=== PATIENT | male | born 1930 | race Caucasian/White ===

== ENCOUNTER 2017-09-29 20:15 | Emergency (ER) | payer OTHER ==
[~2017-09-29] VITALS: Ht 177.8 cm; Wt 81.7 kg
[~2017-09-29 20:15] MED LIST: ASPIRIN325 PO; CARDIZEM CD180 MG PO; CIPRO500 MG PO; DUONEB 2.5-0.5 M3 ML INH; FISHOIL; FOSAMAX 70 MG T70 M1; LOVASTAT20 PO; NORVASC 5 MG TAB5 MG PO; NYSTATIN 1100000 U/M; PREDNISONE 10 M10 MG PO; PREDNISONE 20 M20 MG PO; PRINIVIL5 MG PO; TYLENOL325 MG PO; VENTOLIN HFA INH8 GM INH; VITAMIN D1000 UNI1 PO; ZPAK PO
[2017-09-29 21:11] LABS: HEMATOCRIT 45.1 % (42.0-52.0); HEMOGLOBIN 14.5 gm/dL (14.0-18.0); MCH 25.6 pg (26.0-34.0); MCHC 32.1 g/dL (28.0-37.0); MCV 79.7 fL (80.0-100.0); MPV 9.7 fl. (7.2-11.1); NUCLEATED RBCS 0 /100WBC; PLATELET COUNT* 291 thou/uL (150-400); RBC 5.65 mil/uL (4.50-6.00); RDW-CV 15.7 % (10.5-14.5); WBC 14.6 thou/uL (4.0-11.0)
[2017-09-29 21:21] LABS: CALCIUM 8.8 mg/dL (8.5-10.1); CREATININE 1.9 mg/dL (0.6-1.3)
[2017-09-29 21:22] LABS: POTASSIUM 4.8 mmol/L (3.5-5.1)
[2017-09-29 21:23] LABS: ABSOLUTE LYMPHOCYTES 0.4 thou/uL (0.8-5.3); ABSOLUTE MONOCYTES 0.3 thou/uL (0.0-1.2); ABSOLUTE NEUTROPHILS 13.9 thou/uL (1.6-8.1); PLATELET ESTIMATE ADEQUATE
[2017-09-29 21:26] LABS: ALBUMIN 3.1 g/dL (3.4-5.0); TOTAL PROTEIN 6.4 g/dL (6.4-8.2)
[2017-09-30 00:47] VITALS: BP 115/68
--- NOTE | 2017-09-30 12:00 | EKG ---
[place] [address] ELECTROCARDIOGRAM REPORT Name: CORRINAFER Yovana [id number] Admission: 09/29/17 Attend Phys: Discharge: 09/30/17 Date of : 32 Report #: [id number] THIS REPORT FOR: //name// [facility] ED Test Date: 2017-09-29 Test Time: 20:52:01 Pat Name: SELWYN HOUSER Department: Room: Gender: M Therapist'S Assistant: ROSEMARY : 1930 Requested By: Vandana Min Order Number: [id number] MD: Jamey Aguilar Measurements Intervals [place] Rate: 128 P: 93 NH: 87 QRS: -85 QRSD: 158 T: 45 QT: 395 QTc: 577 Interpretive Statements Sinus tachycardia 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
== END 2017-09-30 00:47 | disposition home or self-care (01) ==
LOC: M.ERS 20:15
PROVIDERS: Emergency Medicine
DX: S43.084A Other dislocation of right shoulder joint, initial encounter (principal); J44.9 Chronic obstructive pulmonary disease, unspecified; W01.0XXA Fall on same level from slipping, tripping and stumbling without subsequent striking against object, initial encounter; Y93.89 Activity, other specified; Y92.89 Other specified places as the place of occurrence of the external cause; Y99.8 Other external cause status

== ENCOUNTER 2017-11-14 13:56 | Inpatient (IN) | payer OTHER ==
[~2017-11-14] VITALS: Ht 172.7 cm; Wt 77.1 kg
[2017-11-14 13:57] VITALS: BP 103/60
[2017-11-14] MEDS ORDERED: ALEVE220 MG PO (14:12)
[2017-11-14] MEDS ORDERED: LASIX 40 MG TAB40 M2 PO (14:12)
[2017-11-14] MEDS ORDERED: ALENDRONATE SOD70 MG PO (14:12)
[2017-11-14] MEDS ORDERED: FISH OIL 1,001000 M2 PO (14:12)
[2017-11-14] MEDS ORDERED: ROXICODONE5 M2 PO (14:13)
[2017-11-14 14:37] LABS: ABSOLUTE LYMPHOCYTES 1.6 thou/uL (0.8-5.3); ABSOLUTE MONOCYTES 1.3 thou/uL (0.0-1.2); ABSOLUTE NEUTROPHILS 10.5 thou/uL (1.6-8.1); BASOPHILS 0.4 %; HEMATOCRIT 49.4 % (42.0-52.0); HEMOGLOBIN 15.9 gm/dL (14.0-18.0); LYMPHOCYTES 11.9 %; MCH 25.3 pg (26.0-34.0); MCHC 32.1 g/dL (28.0-37.0); MCV 78.8 fL (80.0-100.0); MONOCYTES 9.4 %; MPV 8.8 fl. (7.2-11.1); NUCLEATED RBCS 0 /100WBC; PLATELET COUNT* 342 thou/uL (150-400); POLYS 78.3 %; RBC 6.27 mil/uL (4.50-6.00); RDW-CV 18.7 % (10.5-14.5); WBC 13.4 thou/uL (4.0-11.0)
[2017-11-14 14:42] LABS: CALCIUM 9.2 mg/dL (8.5-10.1); CREATININE 1.5 mg/dL (0.6-1.3); POTASSIUM 4.6 mmol/L (3.5-5.1)
[2017-11-14 14:47] LABS: TOTAL PROTEIN 6.6 g/dL (6.4-8.2)
[2017-11-14 14:52] LABS: URINE BILIRUBIN NEGATIVE (Negative); URINE BLOOD NEGATIVE (Negative); URINE CLARITY CLEAR; URINE COLOR YELLOW; URINE GLUCOSE-RANDOM NEGATIVE (Negative); URINE KETONES NEGATIVE (Negative); URINE LEUKOCYTES-REFLEX NEGATIVE (Negative); URINE NITRITE-REFLEX NEGATIVE (Negative); URINE PROTEIN TRACE (Negative); URINE SPECIFIC GRAVITY 1.025 (1.005-1.030); URINE UROBILINOGEN 0.2 E.U./dl (0.2-1.0)
[2017-11-14 15:03] LABS: BE -0.8 mmol/L (-2 to +3); HCO3 23.9 mmol/L (22.0-26.0); pH 7.395 (7.340-7.450)
[2017-11-14 15:04] LABS: PO2 59.5 mmHg (75.0-100.0)
[2017-11-14 15:19] LABS: TROPONIN-I LEVEL 0.07 ng/mL (<0.06)
[2017-11-14 16:26] VITALS: BP 113/71
--- NOTE | 2017-11-14 16:43 | EKG ---
[place] [address] ELECTROCARDIOGRAM REPORT Name: FER HOUSER Room: [place] [address] ADM IN [facility].#: [id number] Admission: 11/14/17 Attend Phys: Leonor Torres Discharge: Date of : 32 Report #: [id number] THIS REPORT FOR: //name// [facility] ED Test Date: 2017-11-14 Test Time: 14:18:33 Pat Name: FER HOUSER Department: Room: [facility] Gender: M Briquetting Machine Operator: Christos MULLINS : 1930 Requested By: Monisha Hendricks Order Number: [id number] MD: Godfrey Rivas Measurements Intervals [place] Rate: 138 P: 0 CA: QRS: 132 QRSD: 155 T: 9 QT: 373 QTc: 566 Interpretive Statements Atrial tachycardia, possible atrial flutter with 2:1 conduction RBBB and LPFB Compared to ECG 08/25/2015 15:07:16 Left posterior fascicular block now present Left-axis deviation no longer present T-wave abnormality no longer present Possible ischemia no longer present Electronically Signed On 11-14-2017 16:43:25 CDT by Godfrey Rivas [email or web address] <ELECTRONICALLY SIGNED> By: Godfrey Rivas MD, FACC 11/14/17 1643 1418 1418 Godfrey Rivas MD, FAC /EPI
[2017-11-14 20:00] VITALS: BP 99/66
[2017-11-15] VITALS: BP 121/66
[2017-11-15] MEDS ORDERED: ASPIR 8181 MG PO (01:19)
[2017-11-15] MEDS ORDERED: POTASSIUM20 PO (01:20)
--- NOTE | 2017-11-15 02:04 | NUR ---
PT ALERT ORIENTED. FRANCISCA LEGS WITH CELLULITIS PICTURED AND PLACED ON CHART. VASALINE GAUZE AND KERLEX WRAP. PT STATES PAIN. HYDROCODONE GIVEN. PT STILL CO PAIN. DR NOTIFIED. OXYCODONE 5 MG BID ORDERED. PT FELL ASLEEP AFTER OXYCODONE. TELEMETRY SHOWS ST 120'S. BP STABLE DR AMANDA KELLEY NOTIFIED. CARDIOLOY CONSULTED IN AM. RICKY WITH PINK TINGED. WILL CONTINUE TO MONITOR.
[2017-11-15 04:00] VITALS: BP 136/73
[2017-11-15 08:00] VITALS: BP 127/62
[2017-11-15 11:36] VITALS: BP 113/79
[2017-11-15 12:12] LABS: HEMATOCRIT 48.2 % (42.0-52.0); HEMOGLOBIN 15.3 gm/dL (14.0-18.0); MCH 24.8 pg (26.0-34.0); MCHC 31.8 g/dL (28.0-37.0); MCV 78.1 fL (80.0-100.0); MPV 8.7 fl. (7.2-11.1); NUCLEATED RBCS 0 /100WBC; PLATELET COUNT* 358 thou/uL (150-400); RBC 6.17 mil/uL (4.50-6.00)
[2017-11-15 12:20] LABS: CALCIUM 8.7 mg/dL (8.5-10.1); CREATININE 1.5 mg/dL (0.6-1.3); POTASSIUM 5.5 mmol/L (3.5-5.1)
[2017-11-15 12:40] LABS: ABSOLUTE LYMPHOCYTES 0.6 thou/uL (0.8-5.3); ABSOLUTE MONOCYTES 0.6 thou/uL (0.0-1.2); ABSOLUTE NEUTROPHILS 13.8 thou/uL (1.6-8.1); ANISOCYTOSIS 1+; PLATELET ESTIMATE ADEQUATE; POIKILOCYTOSIS 1+
--- NOTE | 2017-11-15 13:08 | NUR ---
WOUND CARE NOTE: CONSULT RECEIVED FOR CELLULITIS. PATIENT PRESENTS WITH RED, EDEMATOUS LEGS BILATERALLY. THERE ARE ALSO MULTIPLE AREAS TO BILATERAL LOWER LEGS THAT HAVE RUPTURED BLISTERED AREAS. THESE ARE DRAINING SEROUS DRAINAGE. LEGS WERE CLEANSED WITH SOAP AND WATER BY HIS RN. ABLE TO DOPPLE ALL PEDAL PULSES. 2+ PITTING EDEMA NOTED. PATIENT STATES HE HAS BEEN DEALING WITH THE SWELLING IN HIS LEGS SINCE JULY, THEY THEN BLISTERED AND LOOKED LIKE THIS. PATIENT WAS PREMEDICATED WITH PAIN MEDICATION PRIOR TO ASSESSMENT HIS LEGS ARE EXTREMELY TENDER. WOUND BEDS ARE MOIST, RED AND DRAINING SEROUS FLUID. PATIENT ADMITS TO SMOKING, BUT HE STATES HE IS DONE WITH THAT. 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 FAMILY MEMBER STATES THAT HIS PCP HAD HIM IN [place]. PATIENT STATES THAT HE IS TYPICALLY UP MOVING AROUND. APPLIED XEROFORM GAUZE AND VASELINE GAUZE TO OPENINGS ON BILATERAL LEGS THEN COVERED WITH ABD. SECURED WITH KERLIX AND MACEY. PATIENT TOLERATED DRESSING CHANGE WELL. EDUCATED ON COMPRESSION, COMMUNICATED UNDERSTANDING. RECOMMEND KEEP LEGS ELEVATED DAILY DRESSING CHANGES CONSULT VASCULAR ENCOURAGE GOOD NUTRITION AND HYDRATION
--- NOTE | 2017-11-15 13:21 | NUR ---
assumed pt care at 0730, full assesment done as charted. pt a/o x4, c/o pain in bilat legs. pts legs very red, blisters noted that have popped and others that have not. pts ST on the heart monitor. spoke to cardiology and dr avila about plan of care. pts vss, on 2l o2 sats 95%. legs wrapped by wound care this am. family at bedside, educated on plan. fall precatuions in place. call light in reach. will continue withplan of care.
--- NOTE | 2017-11-15 14:07 | NUR ---
MET WITH PT, , DTR/LUIS A, SON SELWYN AND HIS GERALD. LUIS A AND GERALD ARE PT'S DPOA, COPY ON CHART. PT LIVES WITH /ANAHY. THEY HAVE A SON AND DIL SANYA AND WILL THAT LIVE CLOSEBY THAT CHECK ON THEM. PT CAN DRIVE BUT HAS BEEN HAVING INCREASED HEALTH ISSUES LATELY. IS ABLE TO DO LITTLE COOKING. PT HAS NEBULIZER. HAD HH WITH [facility] BUT PER GERALD, IT ENDED RECENTLY. A NURSE FRIEND/GERARD COMES OVER AND DRESSES PT'S LEGS. THEY WOULD LIKE TO HAVE HH AGAIN IF POSSIBLE. PT HAS BEEN TO SNF IN PAST AT [facility]. PT FOLLOWS WITH DR MINA AT THE [facility] IN [place]. USES CANE TO GET AROUND. FAMILY BRINGS IN FOOD AND HELPS WITH ELECTRICAL CAD TECHNICIAN. DTR/LUIS A PLANS TO BE WITH THEM IN DECEMBER AFTER SCHOOL IS OUT AND SHE RETIRES. AT THIS TIME, SHE LIVES IN [facility] AND GERALD LIVES IN [place]. THEY BOTH PLAN TO BE HERE THRU THE W/E FOR NOW. UNSURE OF PT'S NEEDS AT THIS TIME, DID DISCUSS HOME WITH HH VS SNF. WILL FOLLOW
[2017-11-15 16:23] VITALS: BP 105/68
--- NOTE | 2017-11-15 16:41 | NUR ---
OT RECEIVED ORDER TO EVAL AND TREAT DUE TO CELLULITIS AND LYMPHEDEMA IN BLES. NSG STATED THAT PT WAS JUST SEEN BY WOUND CARE AND MEDICATION WAS PUT ON AND LEGS WRAPPED. FAMILY STATES THAT LEGS LOOK REALLY GOOD AND ARE NOT SWOLLEN AT THIS TIME. OTR EXPLAINED LYMPHEDEMA AND THE BENEFITS OF KEEPING THE SWELLING UNDER CONTROL SO THAT HE DOESNT HAVE MORE INFECTIONS AND WOUNDS ON HIS LES. OTR SUGGESTED THAT ONCE PT IS OUT OF HOSPITAL TO SEE A LYMPHEDEMA THERAPIST IN ORDER TO HELP WITH THE SWELLING. PT AND FAMILY AGREED AND WOULD FOLLOW THROUGH AFTER LEAVING THE HOSPITAL. OTR WILL CONTINUE TO CHECK ON PT.
[2017-11-15 21:27] VITALS: BP 96/60
[2017-11-16] VITALS: BP 100/68
[2017-11-16 04:00] VITALS: BP 95/45
--- NOTE | 2017-11-16 04:09 | NUR ---
ASSUMED PT CARE AT 1930, PT IS A&OX4, PT IS TRACING ST ON THE MONITOR, PT'S HEART RATE BECAME IRREGULAR, EKG WAS PREFORMED, EKG READS AFLUTTER. PT IS ON 4L NC SATTING MID TO HIGH 90'S. PT HAS A GARCÍA TO DD, DRAINIGN YELLOW URINE. PT HAS CELLULITIS TO BLE. LEGS WERE WRAPPED BY WOUND NURSE ON DAY SHIFT. PT C/O PAIN THOURGHOUT THE SHIFT, PRN PAIN MEDICATION GIVEN PER OCT, BED IN LOW POSITION, CALL LIGHT IN REACH, BED ALARM ON, YELLOW ARM BAND AND SOCKS IN PLACE. HOURLY ROUNDING COMPLETED FOR PT SAFETY.
[2017-11-16 04:55] LABS: HEMATOCRIT 45.4 % (42.0-52.0); HEMOGLOBIN 14.6 gm/dL (14.0-18.0); MCHC 32.1 g/dL (28.0-37.0); MPV 9.2 fl. (7.2-11.1); RBC 5.81 mil/uL (4.50-6.00); RDW-CV 18.5 % (10.5-14.5)
[2017-11-16 05:03] LABS: CALCIUM 8.5 mg/dL (8.5-10.1); CREATININE 1.6 mg/dL (0.6-1.3); POTASSIUM 4.8 mmol/L (3.5-5.1)
[2017-11-16 07:30] VITALS: BP 92/53
[2017-11-16 09:02] VITALS: BP 112/71
--- NOTE | 2017-11-16 09:30 | EKG ---
[place] [address] ELECTROCARDIOGRAM REPORT Name: FER HOUSER Room: [address] ADM IN M.R.#: [id number] Admission: 11/14/17 Attend Phys: Leonor Torres Discharge: Date of : 31 Report #: [id number] THIS REPORT FOR: //name// [facility] Test Date: 2017-11-16 Test Time: 02:44:35 Pat Name: FER HOUSER Department: Room: [address] Gender: M Prototype Technician: SOL : 1930 Requested By: Cristhian Hyde Order Number: [id number] Nivia MD: Cristhian Hyde Measurements Intervals [employer] Rate: 112 P: MD: QRS: -82 QRSD: 155 T: 135 QT: 353 QTc: 482 Interpretive Statements Atrial flutter RBBB and LAFB Abnormal T, consider ischemia, lateral leads Baseline wander in lead(s) V6 Compared to ECG 11/14/2017 14:18:33 Left anterior fascicular block now present rate slowed Left posterior fascicular block no longer present Electronically Signed On 11-16-2017 9:29:58 CDT by Cristhian Hyde [email or web address] <ELECTRONICALLY SIGNED> By: Cristhian Hyde MD, FACC 11/16/17 0929 0244 0244 Cristhian Hyde MD, FACC /EPI
--- NOTE | 2017-11-16 09:35 | EKG ---
[place] [address] ELECTROCARDIOGRAM REPORT Name: FER HOUSER Room: [address] ADM IN M.R.#: [id number] Admission: 11/14/17 Attend Phys: Leonor Torres Discharge: Date of : 32 Report #: [id number] THIS REPORT FOR: //name// [facility] Test Date: 2017-11-16 Test Time: 08:26:43 Pat Name: FER HOUSER Department: Room: [address] Gender: M Security Screener: [facility] : 1930 Requested By: Godfrey Rivas Order Number: [id number] Nivia MD: Cristhian Hyde Measurements Intervals [place] Rate: 114 P: VT: QRS: -81 QRSD: 158 T: 118 QT: 363 QTc: 501 Interpretive Statements Atrial flutter RBBB and LAFB Abnrm T, probable ischemia, anterolateral lds Electronically Signed On 11-16-2017 9:35:34 CDT by Cristhian Hyde [email or web address] <ELECTRONICALLY SIGNED> By: Cristhian Hyde MD, [facility] 11/16/17 0935 0826 5 Cristhian Hyde MD, FACC /EPI
--- NOTE | 2017-11-16 09:49 | NUR ---
ASSUMED PT CARE AT 0730, FULL ASSESMENT DONE CHARTED. PT A/O X4, C/O SOME PAIN IN BILAT LEGS. DISCUSSED PAIN MED TIMES WITH PT. HE VERBALIZED UNDERSTANDING. BP LOW THIS AM, MONITORING IT CLOSELY. PT C/O DOUBLE VISION AFTER BREAKFAST. DR BARRON NOTIFIED AND SPOKE WITH PT. PT AFLUTTER ON THE MONITOR. HE USES CALL LIGHT APPROPRIALTY. FALL PRECAUTIONS IN PLACE. WILL CONTINUE WITH PLAN OF CARE.
[2017-11-16 11:53] VITALS: BP 108/73
--- NOTE | 2017-11-16 12:58 | CON ---
[address] [place] [address] [address] CONSULTATION Name: CORRINAFER Yovana Room: [address] IN M.R.#: [id number] Admission: 11/14/17 Attend Phys: Leonor Torres Discharge: Date of : 31 Report #: [id number] THIS REPORT FOR: //name// CC: Eldon Morales DATE OF SERVICE: 11/15/2017 INFECTIOUS DISEASE CONSULTATION ATTENDING PHYSICIAN: Dr. Emanuel Morales. REASON FOR EVALUATION: Lower extremity skin and soft tissue infection, bilateral, probably multifactorial inflammatory eruption including cellulitis, may well have some pneumonitis as well. HISTORY OF PRESENT ILLNESS: Chart reviewed and the patient examined. This is an 87-year-old with history of previous stroke with some underlying COPD as well who has been having increasing pain associated with the bilateral lower extremities. They noted back in July 2017 and developed some swelling as well as erythema. This progressed to the point where it had superficial bullous lesions, spontaneously drained primarily of serous fluid. He describes primarily pain associated with the site. There is no evidence he has had significant fevers. Denies pulmonary or gastrointestinal related complaints. Cultures have been collected. The Gram stain of the leg site had many gram-negative rods with rare gram-positive cocci on Gram stain with growth of many gram-negative rods, blood cultures. Empirically started on ceftriaxone as well as vancomycin. ALLERGIES: None known. MEDICATIONS: Include levalbuterol, Lasix, diltiazem CD, vancomycin, methylprednisolone, atorvastatin, ceftriaxone. PAST MEDICAL HISTORY: History of elevated cholesterol, osteoporosis, prostatectomy, history of stroke, history of appendectomy, COPD, cardiomyopathy, congestive heart failure, hypertension. SOCIAL HISTORY: History of smoking cigarettes, no ethanol. FAMILY HISTORY: Noncontributory. REVIEW OF SYSTEMS: As above. PHYSICAL EXAMINATION: GENERAL: He is alert and has some degree of dysphasia, [place] [address] CONSULTATION Name: FER HOUSER Room: [address]#: [id number] Admission: 11/14/17 Attend Phys: Leonor Torres Discharge: Date of : 31 Report #: [id number] degree of dementia as well, and chronically ill appearing and undernourished. VITAL SIGNS: Temperature 97.7, pulse 124, respirations 22, blood pressure 113/79. SKIN: Warm, dry, no rashes. HEENT: Unremarkable. NECK: Supple. LUNGS: Diminished breath sounds. Few scattered crackles. HEART: Regular. I do not appreciate murmur. ABDOMEN: Soft, nontender. EXTREMITIES: Bilateral lower extremities, he has compression dressings. These were left undisturbed. GENITOURINARY AND RECTAL: Deferred. LABORATORY DATA: CBC: White count of 15.0, H and H of 15.3 and 48.2, platelets of 358. Does have lymphocytopenia. Electrolytes: Sodium 138, potassium 5.5, chloride 103, bicarbonate is 29, BUN and creatinine 44 and 1.5. The cultures described above at the site, with gram-negative rods. Blood cultures sterile thus far. Lactic acid 1.4. Chest x-ray, small right pleural effusion. ASSESSMENT: Bilateral lower extremities inflammatory eruption, likely multifactorial. We will continue empiric therapy. We will adjust antibiotics to cover some broad-spectrum gram negatives at this point. We will await those results to finalize recommendations and supportive care. He is certainly at risk for infectious complications. I told I will be around when the next dressing change happens. <ELECTRONICALLY SIGNED> By: Jeremiah Allison MD 11/16/17 1258 1606 1931Joseadonis Allison MD /nt
--- NOTE | 2017-11-16 16:25 | 2DMMODE ---
[place] [address] 2 D/M-MODE ECHOCARDIOGRAM Name: FER HOUSER Room: 229-P ADM IN [facility]#: [id number] Admission: 11/14/17 Attend Phys: Emanuel Morales Discharge: Date of : 32 Date of Service: 11/16/17 1625 Report #: [id number] THIS REPORT FOR: //name// APPROVED REPORT Study performed: 11/16/2017 10:04:30 EXAM: Comprehensive 2D, Doppler, and color-flow Echocardiogram Patient Location: In-Patient Room #: 229 Status: routine BSA: 1.93 HR: 135 bpm BP: 112/71 mmHg Rhythm: NSR Other Information Study Quality: Good Indications Dyspnea Dariusz cellulitis, hypoxemia 2D Dimensions IVSd: 17.34 (7-11mm) LVOT Diam: 18.47 (18-24mm) LVDd: 42.16 mm PWd: 13.65 (7-11mm) Ascending Ao: 44.26 (22-36mm) LVDs: 31.13 (25-40mm) Aortic Root: 37.48 mm Volumes Left Atrial Volume (Systole) LA ESV Index: 61.80 mL/m2 Aortic Valve AoV Peak Kiran.: 4.28 m/s AO Peak Gr.: 73.34 mmHg LVOT Max P.08 mmHg AO Mean Gr.: 44.76 mmHg LVOT Mean P.38 mmHg LVOT Max V: 0.88 m/s AO V2 VTI: 72.93 cm LVOT Mean V: 0.53 m/s DOMINGA (VTI): 0.44 cm2 LVOT V1 VTI: 12.04 cm Mitral Valve E/A Ratio: 2.66 MV Decel. Time: 82.62 [place] [address] 2 D/M-MODE ECHOCARDIOGRAM Name: FER HOUSER Room: [address] IN .R.#: [id number] Admission: 11/14/17 Attend Phys: Emanuel Morales Discharge: Date of : 32 Date of Service: 11/16/17 1625 Report #: [id number] MV E Max Kiran.: 1.56 m/s MV PHT: 23.96 ms MVA (PHT): 9.18 cm2 TDI E/Medial E': 31.20 Medial E' Kiran.: 0.05 m/s Pulmonary Valve PV Peak Kiran.: 0.64 m/s PV Peak Gr.: 1.64 mmHg Tricuspid Valve TR Peak Gr.: 34.00 mmHg RVSP: 39.00 mmHg Left Ventricle The left ventricle is normal size. There is global hypokinesis of the left ventricle. Moderate concentric left ventricular hypertrophy. Left ventricular systolic function is normal. The left ventricular ejection fraction is within the normal range. LVEF is 35-40%. Grade IV - fixed restrictive diastolic dysfunction. Right Ventricle Right ventricle is dilated. The right ventricular systolic function is normal. Atria Left atrium is severely dilated. Right atrium is severely dilated. Aortic Valve Severe aortic valve sclerosis. Moderate aortic regurgitation. Severe aortic stenosis. Mitral Valve Moderate mitral annular calcification. Moderate mitral regurgitation. No evidence of mitral valve stenosis. Tricuspid Valve The tricuspid valve is normal in structure. Moderate tricuspid regurgitation. The RVSP is 35-40 mmHg. Pulmonic Valve The pulmonary valve is normal in structure. There is no pulmonic valvular reg[place]itation[place] [address] 2 D/M-MODE ECHOCARDIOGRAM Name: FER HOUSER Room: [address] IN ..#: [id number] Admission: 11/14/17 Attend Phys: Emanuel Morales Discharge: Date of : 32 Date of Service: 11/16/17 1625 Report #: [id number] Aortic root is mildly dilated. IVC is normal in size and collapses with >50% inspiration Pericardium There is no pericardial effusion. <Conclusion> Moderate concentric left ventricular hypertrophy. LVEF is 35-40%. Left atrium is severely dilated. Severe aortic stenosis. Moderate aortic regurgitation. Moderate mitral regurgitation. <ELECTRONICALLY SIGNED> By: Cristhian Hyde MD, [facility] 11/16/17 1625 162 24 Cristhian Hyde MD, [facility] /INF
--- NOTE | 2017-11-16 19:02 | NUR ---
PT CONTINUES TO C/O PAIN IN BILAT LEGS. PT GIVEN EXTRA DOSE OF FENTENEL WITH DRESSING CHANGE, ALSO GIVEN OXY IR, PT HAD SOME RELIEF, BUT ASKES FOR PAIN MEDS HOURLY. PT EDUCATED THAT HIS BP HAS BEEN LOW AND GIVEN THE TIME THAT HE IS DUE FOR MORE PAIN MEDS. PT VERBALIZED UNDERSTANDING. PT DRESSINGS CHANGED A SECOND TIME THIS EVENING AFTER VASCULAR ASSESED HIM. PT UP TO CHAIR FOR DINNER. GARCÍA WAS REMOVED. PT HAS NOT VOIDED YET POST REMOVAL. WILL MONITOR THIS.
[2017-11-16 20:30] VITALS: BP 117/72
[2017-11-17] VITALS: BP 92/54
--- NOTE | 2017-11-17 00:30 | NUR ---
RECIEVED REPORT AT 1930. ASSESSMENT COMPLETED CHARTED. PT C/O PAIN IN BLE, GAVE PAIN MEDS PER IV WITH POSITIVE RESULTS. PT IS SLIGHTLY INCONTINENT OF URINE AFTER TAKING OUT GARCÍA. PT RESTING IN BED AT THIS TIME. IV IN RIGHT AC, ABLE TO MAKE NEEDS KNOWN, CALL LIGHT WITHIN REACH. FALL RISK R/T CONDITION OF BOTH LEGS. WILL CONTINUE WITH PLAN OF CARE.
[2017-11-17 04:00] VITALS: BP 97/48
[2017-11-17 05:47] LABS: HEMATOCRIT 45.7 % (42.0-52.0); HEMOGLOBIN 14.7 gm/dL (14.0-18.0); MCH 24.9 pg (26.0-34.0); MCHC 32.1 g/dL (28.0-37.0); MCV 77.7 fL (80.0-100.0); MPV 9.2 fl. (7.2-11.1); RBC 5.89 mil/uL (4.50-6.00); RDW-CV 18.4 % (10.5-14.5)
[2017-11-17 06:01] LABS: CALCIUM 8.8 mg/dL (8.5-10.1); CREATININE 1.8 mg/dL (0.6-1.3); MAGNESIUM 2.8 mg/dL (1.8-2.4); POTASSIUM 5.4 mmol/L (3.5-5.1)
[2017-11-17 08:00] VITALS: BP 116/71
--- NOTE | 2017-11-17 11:20 | NUR ---
CADEN WAS INFORMED BY NURSING THAT PATIENT REQUEST HOSPICE INFORMATONAL VISIT. CM SPOKE TO PATIENT, DTR, DPOA, AND SPOUSE TO DISCUSS HOSPICE AND TIME TO SETUP VISIT. CADEN CONTACTED [facility] AND SPOKE TO RANJIT TO INFORM OF THE NEED TO SETUP HOSPICE INFOMATONAL VISIT. CADEN INFORMED RANJIT THAT THE PATIENTS FAMILY IS REQUESTING A VISIT TODAY (11/17/16) AT 1600. RANJIT INFORMS THAT SHE WILL CONTACT THE PATIENTS DPOA GERALD TO SETUP A TIME TO VISIT. CM WILL REMAIN AVAILABLE TO ASSIST AND FOLLOW NEEDED.
[2017-11-17 12:00] VITALS: BP 116/68
--- NOTE | 2017-11-17 13:29 | NUR ---
HOSPICE VISITED WITH PT AND FAMILY. PT AND FAMILY AGREE THAT THEY DO NOT WANT AGGRESSIVE TREATMENT. FAMILY WOULD LIKE PT TO GO HOME WITH HOSPITAL BUT THAT IS NOT AN IDEAL PLAN PT AND LIVE ALONE. PT AND FAMILY DICUSSED POSSIBILITY OF GOING TO SNU FOR REHAB THEN GOING HOME ON HOSPICE. ENCOURAGED THEM TO DISCUSS WITH CASE MANAGEMENT ON MONDAY
[2017-11-17 16:31] VITALS: BP 98/49
--- NOTE | 2017-11-17 17:33 | NUR ---
PT RESTING IN BED THROUGHOUT SHIFT. FAMILY AT BS AND UPDATED ON CARE. FAMILY REQUESTED HOSPICE VISIT TODAY. PT SOA WITH CONVERSATION,POOR APPETITE. UP TO BSC WITH MAXIMUM ASSIST. PT DUSKY BUT MAINTAINS SATS IN UPPER 90S. PT REPORTS PAIN IN BLE-MEDS GIVEN ORDERED
[2017-11-17 20:00] VITALS: BP 107/57
--- NOTE | 2017-11-17 23:48 | H ---
[address] [address] HISTORY AND PHYSICAL Name: CORRINAFER Yovana Room: [address] IN M.R.#: [id number] Admission: 11/14/17 Attend Phys: Leonor Torres Discharge: Date of : 31 Report #: [id number] THIS REPORT FOR: //name// CC: Eldon Morales DATE OF SERVICE: 11/14/2017 CHIEF COMPLAINT: "Short of breath and I fell." HISTORY OF PRESENT ILLNESS: The patient is an 87-year-old gentleman, who has history of severe aortic stenosis and COPD, who presented to us here after a fall. He has been complaining of some shortness of breath for a long time. He continues to smoke, however, and said that he is smoking 3 cigarettes per day. He has been following up with his PCP outpatient apparently. Per , the patient was diagnosed to have some heart issues before I believe, the aortic stenosis and he did not want it done per . The patient also has some lower extremity cellulitis, this has been going on for a while and has blistered off starting last night. Denies any fever or chills. The patient was also noted to have 88% saturation in the [facility], so he was sent here. The patient has been having some pain in his legs, but he said that his lower extremities erythema and swelling has been going on for months. The patient fell apparently today and hit his right shoulder, so that is why they decided to come in. 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 PAST SURGICAL HISTORY: Cholecystectomy, hernia repair, right wrist surgery, appendectomy, cataract surgery in 2016. FAMILY HISTORY: The family does not really know the medical problems and the patient also is not sure. SOCIAL HISTORY: The patient lives with the . He continues to smoke maybe 3 cigarettes per day, but smoked for a long time in the past. Denies any alcohol use, denies illicit drug use. MEDICATIONS: Includes Albuterol 2 puffs inhaled every 4 hours for shortness of breath, diltiazem 360 daily, DuoNeb every 4 hours as needed, alendronate 1 tab p.o. q. weekly, lovastatin 10 mg daily, fish oil 1000 b.i.d., naproxen 220 q. 8 hours, furosemide 40 daily, oxycodone 5 mg q. 12 hours p.r.n. REVIEW OF SYSTEMS: The patient denies any fever or chills. He does have some chronic cough, some chronic shortness of breath. Denies any chest pain, [place] [address] HISTORY AND PHYSICAL Name: FER HOUSER Room: [address] IN [facility]#: [id number] Admission: 11/14/17 Attend Phys: Leonor Torres Discharge: Date of : 31 Report #: [id number] been really weak and also lower extremity edema. Denies any nausea, vomiting, abdominal pain, diarrhea, constipation. A 12-point review of systems unremarkable as mentioned above. PHYSICAL EXAMINATION: VITAL SIGNS: Temperature 36.7, heart rate 136, respiratory 19, blood pressure 101/64, 95% on 3 liters nasal cannula. GENERAL: The patient is alert. He is oriented x 3. He is in mild respiratory distress and good conversational dyspnea. HEENT: Normocephalic, atraumatic. Nares patent. Clear oropharynx. NECK: Supple. No neck lymphadenopathy. CARDIOVASCULAR: Normal rate, regular rhythm. Does have some murmur. RESPIRATORY: Very diminished. He is wheezing on exam. GASTROINTESTINAL: Abdomen is soft, nontender, good bowel sounds. No organomegaly. GENITOURINARY: Deferred. MUSCULOSKELETAL: Good strength. He does have bilateral lower extremity edema with erythema and blister formation in the lower extremity all over. He has tenderness all over. LABORATORY DATA: Reviewed and CBC showed a white count of 13.4, hemoglobin 16.9, hematocrit 49.4, platelet count is 342. Chemistry showed a sodium 142, potassium is 4.6, chloride is 102, carbon dioxide is 32, BUN 34, creatinine is 1.5, glucose 91. Lactic acid 1.4. Calcium is 9.2, bilirubin is 1, AST 40, ALT 42. Troponin is 0.07 and another set is 0.07. BNP is elevated, total protein 6.2, albumin 3. Urine is trace protein. IMAGING STUDIES: A chest x-ray done shows moderate pleural effusion. Right shoulder x-ray done showed no acute osseous abnormality. remains medical concern, MRI or CT were recommended. IMPRESSION: The patient is an 87-year-old gentleman, who is admitted for acute chronic obstructive pulmonary disease exacerbation, acute on chronic hypoxic respiratory failure, severe aortic stenosis on last echo, on chronic O2. He does have history of hypertension, hyperlipidemia. He does have bilateral lower extremity cellulitis with lymphedema, chronic tobaccoism, mild troponin elevation, and known congestive heart failure. PLAN: The patient will be admitted. I expect this patient is going to be here more than 2 midnights. We will go ahead and put him on antibiotics, nebulizer treatment and steroids. We will put him on Rocephin and Zithromax for that. Given the troponin elevation, ED physician already consulted, Cardiology, as the patient also has severe aortic stenosis. We will go ahead also do ultrasound of the legs and treat the patient. Due to lymphedema therapy, we will add vancomycin to cover any staph infection in his lower extremity. ID has been consulted. We will go ahead and I will ask PT [place] [address] HISTORY AND PHYSICAL Name: FER HOUSER Room: [address] IN [facility]#: [id number] Admission: 11/14/17 Attend Phys: Leonor Torres Discharge: Date of : 31 Report #: [id number] Discussed with the patient and the family regarding the patient's code status. The patient wants to be do not resuscitate and the is agreeable to that. <ELECTRONICALLY SIGNED> By: Thania Pedraza MD 11/17/17 2348 1725 [id number] Pedraza MD /nt
[2017-11-18 00:40] VITALS: BP 107/63
[2017-11-18 04:00] VITALS: BP 115/59
--- NOTE | 2017-11-18 04:03 | NUR ---
PT ALERT ORIENTED. UP TO BSC WITH 2-3 PERSON ASSIST. TELEMETRY SHOWS A-FIB BBB ALSO SR BBB. PT PULLED OFF O2 AND DESATURATED TO 80% ONE MIN LATER PT HAD 16 BEAT OF VTACH. O2 AT 4 LITERS NC. WILL CONTINUE TO MONITOR.
--- NOTE | 2017-11-18 04:05 | NUR ---
DR HAMLIN NOTIFIED OF 16 BEAT VTACH AT 0135. NO NEW ORDERS.
[2017-11-18 05:51] LABS: MCH 25.2 pg (26.0-34.0); MCHC 32.6 g/dL (28.0-37.0); MCV 77.3 fL (80.0-100.0); MPV 8.9 fl. (7.2-11.1); RBC 5.56 mil/uL (4.50-6.00); RDW-CV 18.2 % (10.5-14.5); WBC 10.9 thou/uL (4.0-11.0)
[2017-11-18 06:18] LABS: CALCIUM 8.3 mg/dL (8.5-10.1); CREATININE 1.5 mg/dL (0.6-1.3); MAGNESIUM 2.5 mg/dL (1.8-2.4); POTASSIUM 4.4 mmol/L (3.5-5.1)
[2017-11-18 08:21] VITALS: BP 98/58
[2017-11-18 12:09] VITALS: BP 103/48
--- NOTE | 2017-11-18 12:20 | CON ---
[address] [address] CONSULTATION Name: FER HOUSER Room: [address] IN M.R.#: [id number] Admission: 11/14/17 Attend Phys: Leonor Torres Discharge: Date of : 31 Report #: [id number] THIS REPORT FOR: //name// CC: Dr Cash Morales DATE OF SERVICE: 11/15/2017 TYPE OF REPORT: Cardiology consultation. HISTORY OF PRESENT ILLNESS: The patient is an 87-year-old white male who I was asked to see in the hospital today after he was noted to be tachycardic. The patient has been a smoker for years and COPD. He continues to smoke and does have a nebulizer at home but no oxygen. He was actually admitted here to [facility] in August of 2015 with shortness of breath. He was seen at that time by my partner, Dr. Rivas. He underwent an echocardiogram in August 2015, which showed left ventricular hypertrophy, ejection fraction 60%, left atrial enlargement, severe aortic stenosis, mild mitral and tricuspid insufficiency and moderate pulmonary hypertension. The patient is not very active because of his age. He uses a walker. He has chronic edema. Recently, he has had blisters on his legs. Recently, he has had increasing shortness of breath. The ambulance was called yesterday and he was brought here to [facility]. He was noted to be hypoxic. He was admitted for further evaluation and treatment. He denies any chest pain. He notes occasional racing of his heart. No syncope. PAST MEDICAL HISTORY: Otherwise significant for removal of a skin cancer, prostate cancer, shoulder surgery, Cataract extraction and appendectomy. He has a history of hypertension and hyperlipidemia. No history of diabetes. MEDICATIONS: Consist of albuterol inhaler, aspirin, Cardizem, Lasix, lovastatin and oxycodone. ALLERGIES: He has no known drug allergies. FAMILY HISTORY: His father had a stroke. SOCIAL HISTORY: He is . He and his live in [place], [place]. He is a retired truck and transport mechanic, smokes half pack of cigarettes a day. No alcohol abuse. REVIEW OF SYSTEMS: He apparently had a stroke in the past. No history of peptic ulcer disease or liver disease. He had prostate cancer. [place] [address] CONSULTATION Name: HOUSERFER Yovana Room: [address]#: [id number] Admission: 11/14/17 Attend Phys: Leonro Torres Discharge: Date of : 31 Report #: [id number] PHYSICAL EXAMINATION: GENERAL: Revealed an elderly frail appearing white male, lying in bed, appeared in no acute distress. VITAL SIGNS: He had a blood pressure of 120/60, his pulse is 120 and he is afebrile. HEENT: He is anicteric. Conjunctivae pink. Mucous membranes are moist. NECK: Veins appear mildly distended. CHEST: Has coarse breath sounds bilaterally. CARDIOVASCULAR: Regular tachycardia, grade 2 systolic ejection murmur. ABDOMEN: Soft. EXTREMITIES: Had edema. Dorsalis pedis pulse cannot be palpated. SKIN: He had erythematous legs below the knee. There was blisters noted of the anterior tibial area. NEUROLOGICAL: Nonfocal. RADIOLOGICAL DATA: His ECG on admission appears to show sinus tachycardia, left posterior fascicular block and a right bundle-branch block. His workup yesterday, portable chest x-ray showed cardiomegaly, small effusion and pulmonary edema. Venous duplex scan of his legs today showed no DVT. LABORATORY DATA: Sodium 140, BUN 34 and creatinine 1.5. His albumin is 3.0. Troponin 0.07. BNP 12,726. His white blood cell count is 13.4 and hemoglobin of 15.9. IMPRESSION AND RECOMMENDATIONS: 1. Chronic obstructive pulmonary disease. 2. Tobacco abuse. 3. Severe aortic stenosis. The patient is a nonoperative candidate. 4. Sinus tachycardia. I would discontinue beta agonists. 5. Peripheral arterial disease. 6. History of prostate cancer. 7. Hypertension. The patient has been on calcium charlene. 8. Hyperlipidemia. The patient is on a statin drug. Note of the fact the patient is a DNR. I believe this is appropriate for this patient with multiple medical problems and his advanced age. <ELECTRONICALLY SIGNED> By: Cristhian Hyde MD, FACC 11/18/17 1220 1123 [id number] Hyde MD, FACC /nt
--- NOTE | 2017-11-18 14:29 | NUR ---
CALL FROM GERARD/GREGORY GERMAIN, STATING SHE HAS OBTAINED INSURANCE AUTHORIZATION FOR PT.TO COME TO A SKILLED BED TODAY IF STABLE. CM NOTIFIED DR. SAL.
[2017-11-18 16:50] VITALS: BP 135/48
[2017-11-18 20:00] VITALS: BP 100/48
[2017-11-19] VITALS (10 sets, daily range): BP systolic 108–135; BP diastolic 48–84
--- NOTE | 2017-11-19 03:11 | NUR ---
PT ALERT ORIENTED. UP TO BSC WITH 2 PERSON ASSIST. PT ON MS STATUS. O2 AT 4 LITERS NC. FRANCISCA LEG DRSGS INTACT. FENTNYL GIVEN ONCE FOR LEG PAIN. SOB WITH ANY ACTIVITY. O2 AT 4 LITERS NC. WILL CONTINUE TO MONITOR.
[2017-11-19 04:48] LABS: HEMATOCRIT 45.5 % (42.0-52.0); HEMOGLOBIN 14.4 gm/dL (14.0-18.0); MCH 24.7 pg (26.0-34.0); MCHC 31.6 g/dL (28.0-37.0); MCV 78.1 fL (80.0-100.0); MPV 9.3 fl. (7.2-11.1); RBC 5.83 mil/uL (4.50-6.00); RDW-CV 18.1 % (10.5-14.5); WBC 10.8 thou/uL (4.0-11.0)
[2017-11-19 05:22] LABS: CALCIUM 8.3 mg/dL (8.5-10.1); CREATININE 1.3 mg/dL (0.6-1.3); MAGNESIUM 2.8 mg/dL (1.8-2.4); POTASSIUM 4.6 mmol/L (3.5-5.1)
[2017-11-19 05:45] LABS: ALBUMIN 2.9 g/dL (3.4-5.0); CALCIUM 8.3 mg/dL (8.5-10.1); CREATININE 1.3 mg/dL (0.6-1.3); PHOSPHORUS* 3.1 mg/dL (2.5-4.9); POTASSIUM 4.6 mmol/L (3.5-5.1)
--- NOTE | 2017-11-19 08:00 | NUR ---
PATIENT TRANSFERRED TO ROOM 305 VIA BED FROM [facility]. REPORT RECEIVED FROM Dilip MINOR RN. PATIENT'S ASSESSMENT AND VITALS CHARTED. PATIENT DENIES PAIN, PATIENT DYPSNEIC ON EXERTION OR EVEN WITH TALKING. IV SALINE LOCKED. O2 IN PLACE AT 4L/NC. DRESSINGS IN PLACE TO BILATERAL LEGS AND HEELS ELEVATED ON PILLOWS. PATIENT INCONTINENT OF SMALL AMOUNT OF STOOL AND URINE, YESENIA-CARE PROVIDED. ORIENTED TO NEW ROOM AND ENVIRONMENT. CALL LIGHT WITHIN REACH. REMAINS IN CONTACT ISOLATION.
--- NOTE | 2017-11-19 08:34 | NUR ---
RECEIVED BEDSIDE SHIFT SHIFT REPORT ERGARDING PATIENTS CURRENT HEALTH STATUS AND MED/SURG STATUS. LILLITZHANNA RESTING COMFORTABLY IN BED. ISOLATION FOR VRE IN WOUNDS. BED OBTAINED ON AND REPORT CALLED TO RECEIVING RN. WEINER AND HIS BELONGINGS GATHERED AND TRANSFERRED TO ROOM 305 AT 07:45.
--- NOTE | 2017-11-19 10:30 | NUR ---
0940-PATIENT STATING HE IS UNABLE TO BREATHE, RESPIRATORY CALLED TO ADMINISTER BREATHING TREATMENT. PATIENT'S PULSE OX READING 94%, HR 150. NURSING CONSTRUCTION COORDINATOR NOTIFIED OF ELEVATED HR AND PATIENT STRUGGLING TO BREATH. 0945-NURSING CONSTRUCTION COORDINATOR IN ROOM TO ASSESS PATIENT AND CONTACT OFFICER INITIATED. PATIENT'S VITALS CHARTED. EKG ORDERED, CHEST XRAY ORDERED, AND TROPONIN. PLACED ON THE BOILER RELINER. 1000-PATIENT'S HR CONTINUES TO BE ELEVATED IN THE 150s. 1015-EKG COMPLETED, CHEST XRAY COMPLETED, UPDATED DR SAL ON PATIENT'S STATUS AND NEW ORDERS NOTED. SPOKE WITH CARDIOLOGY NURSE REGARDING PATIENT. NEW IV STARTED TO RIGHT WRIST. 1030-PATINET TRANSFERRED TO ROOM 205 VIA BED WITH ALL BELONGINGS. REPORT GIVEN TO ZITA TORO. NURSING SUPERIVSOR STARTING PATIENT ON CARDIZEM DRIP. PATIENT'S FAMILY NOTIFIED OF THE TRANSFER. ALL BELONGINGS SENT WITH PATIENT.
--- NOTE | 2017-11-19 10:30 | NUR ---
PT ARRIVED FROM MED SURG. REPORT TAKEN FRON ZITA FORTUNE. ASSESSED PT AND AGREE WITH PRIOR ASSESSMENT. VSS WNL. PT ON CARDIAC MONITER TRACING ST WITH PVC'S HR 151. PT IS AFEBRILE AND ON 4L OF 02. LUNGS ARE COARSE. PT IS ON ISO FOR MRSA. WM.
--- NOTE | 2017-11-19 11:44 | CON ---
[address] [address] CONSULTATION Name: HOUSERFER Yovana Room: [address] IN .R.#: [id number] Admission: 11/14/17 Attend Phys: Leonor Torres Discharge: Date of : 31 Report #: [id number] THIS REPORT FOR: //name// CC: Eldon Morales DATE OF SERVICE: 11/18/2017 NEPHROLOGY CONSULTATION CONSULTING PHYSICIAN: Emanuel Morales DO REASON FOR CONSULTATION: Acute kidney injury. HISTORY OF PRESENT ILLNESS: The patient is an 87-year-old gentleman who was admitted on 11/14/2017 with shortness of breath, diagnosed with a COPD exacerbation. He was started on antibiotics along with breathing treatments. He has underlying severe aortic stenosis and currently has no complaints. REVIEW OF SYSTEMS: Constitutional, psych, heme, eyes, ENT, respiratory, cardiac, GI, , endocrine, all negative except as documented above. He was on NSAIDs several months ago and was taking those regularly, but had stopped those. PAST MEDICAL HISTORY: Severe aortic stenosis, skin cancer, squamous cell type, dyslipidemia, osteoporosis, CVA, COPD, cholecystectomy, appendectomy. FAMILY HISTORY: Not pertinent in this 87-year-old gentleman. SOCIAL HISTORY: Positive for active tobacco use. CURRENT MEDICATIONS: Reviewed. PHYSICAL EXAMINATION: VITAL SIGNS: Blood pressure 103/48, pulse 61, temperature 36.7. GENERAL: In no acute distress. EYES: Open. EARS: Externally normal. CARDIOVASCULAR: Regular rate. LUNGS: Decreased breath sounds. ABDOMEN: Soft. LYMPHATICS: Bilateral lower extremities are wrapped. PSYCHIATRIC: Awake, alert. LABORATORY DATA: White cell count 10.9, hemoglobin 14, platelets 220. Sodium 139, potassium 4.4, chloride 102, bicarbonate 30, BUN 59, creatinine 1.5, glucose 155, magnesium 2.5, calcium 8.3. Vancomycin trough is 16[place] [address] CONSULTATION Name: FER HOUSER Yovana Room: [address]#: [id number] Admission: 11/14/17 Attend Phys: Leonor Torres Discharge: Date of : 31 Report #: [id number] ASSESSMENT: 1. Acute kidney injury with 11/14/2017 creatinine of 1.5. Today's creatinine is 1.5, baseline creatinine unknown. In August 2015, his creatinine was 1.2. 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 His vancomycin level on 11/17/2017 was 16. His UA is okay. 2. Severe aortic stenosis with an ejection fraction of 35-40% with moderate aortic regurgitation and mitral regurgitation. 3. Chronic obstructive pulmonary disease exacerbation. 4. Lymphedema/leg cellulitis. 5. Diabetes. PLAN: Renal function appears to be stable. He has good urine output having made 1450 of urine. Family is not wishing aggressive care, the patient is a DNR with hospice. I will not order any further aggressive treatments. We will check labs again in the a.m. Thank you for requesting my opinion in the care and management of this patient. <ELECTRONICALLY SIGNED> By: Tg Clark MD 11/19/17 1144 1403 [id number] Clark MD /nt
--- NOTE | 2017-11-19 17:40 | NUR ---
PT HAS HAD SEVERAL MED CHANGES TODAY. HE IS NOW ON COMFORT CARE MEDS AND WILL BE D/C'D TOMORROW ON HOSPICE. PAPERWORK FAXED TO [facility] AT INCLUDING ORDER, FACE SHEET, H&P, AND MEDS. PAWAN AT [facility] . PT HAS A FENTANYL PATCH ON AND A SCOPALAMINE PATCH. PT HAS HAD MORPHINE FOR PAIN. PT IS ON A CARDIZEM GTT. EDUCATION GIVEN ON DEMAND. HOURLY ROUNDING COMPLETE. PT REMAINS ON ISO. DR QUIGLEY NOTIFIED OF PTS BNP. ABT ZYVOX D/C'D DUE TO INCOMPATABILITY WITH FENTANYL.
--- NOTE | 2017-11-19 20:00 | NUR ---
RECEIVED REPORT AND ASSUMED CARE OF PT, ASSESSMENT COMPLETED. PT SITTING UP IN BED, SOB, O2 ON AT 2.5 L/NC. FRANCISCA LEGS WRAPPED WITH COBAN. FAMILY AT BEDSIDE. TELEMTRY ON SHOWING SR WITH 1ST AVB AND FREQ PAC. WILL CONT TO MONITOR AND ASSIST NEEDED.
[2017-11-20 00:04] VITALS: BP 121/61
[2017-11-20 04:14] VITALS: BP 114/80
--- NOTE | 2017-11-20 06:00 | NUR ---
ABLE TO REST AFTER IV LORAZAPAM GIVEN. FRANCISCA LOWER LEG DRSG CHANGES COMPLETED. PO PAIN MED GIVEN AFTER THIS. TELEMETRY CONT TO SHOW A-FIB VS ST WITH FREQ PAC. HS GOALS OF REST AND SAFETY ACHIEVED. HOURLY ROUNDING OBSERVED.
[2017-11-20 07:30] VITALS: BP 147/85
--- NOTE | 2017-11-20 07:30 | NUR ---
ASSUME CARE OF PT. PT HAVING AIR HUNGER. PT STATES "I'M GOING TO TODAY". PT GIVEN MEDS ORDERED. WILL CONTINUE TO MONITOR. HOSPICE NOTIFIED
--- NOTE | 2017-11-20 09:43 | NUR ---
DISCUSSED WITH FAMILY PLAN OF CARE. FAMILY STATE THEY DO NOT WANT AGRESSIVE TREATMENT AND WANT TO KEEP PT COMFORTABLE. PLAN WAS FOR FAMILY TO TAKE PT HOME WITH HOSPICE BUT THEY STATE THEY ARE UNPREPARED TO TAKE HIM HOME AND WOULD LIKE TO KEEP HIM IN THE HOSPITAL IF POSSIBLE. WILL DISCUSS WITH DR BARRON AND HOSPICE TEAM
--- NOTE | 2017-11-20 10:16 | NUR ---
PT CURRENTLY UNRESPONSIVE. MEDS GIVEN ORDERED FOR COMFORT. FAMILY AT BS. FAMILY AGREES FOR PLAN TO KEEP PT COMFORTABLE
[2017-11-20 11:30] VITALS: BP 104/67
--- NOTE | 2017-11-20 11:30 | NUR ---
Pt hard to arouse today, [facility] here to assess. Plan to watch Pt today and dc tomorrow to either home with hospice v. GIP, if Pt's condition continues to decline. Following.
--- NOTE | 2017-11-20 12:42 | NUR ---
PT RESTING COMFORTABLY IN BED. FAMILY AT BS. FAMILY REFUSES TURNS AT THIS TIME. O2 SATS IN UPPER 80S ON 4L NC
[2017-11-20 15:22] VITALS: BP 123/72
--- NOTE | 2017-11-20 15:28 | NUR ---
FAMILY AT BS. PT REMAINS UNRESPONSIVE WITH IRREGULAR BREATHING PATTERN. PT GASPING FOR AIR. SATS IN 70S. MORPHINE GIVEN FOR AIR HUNGER
--- NOTE | 2017-11-20 16:09 | NUR ---
WOUND NURSE: WOUND ASSESSMENT DEFERRED BY THIS NURSE AT REQUEST OF HIS STAFF NURSING CARING FOR RANDALLE HE IS RESTING QUIETLY AND SHE CAN MANAGE WOUND CARE.
--- NOTE | 2017-11-20 17:48 | EKG ---
[place] [address] ELECTROCARDIOGRAM REPORT Name: FER HOUSER Room: [address] ADM IN M.R.#: [id number] Admission: 11/14/17 Attend Phys: Leonor Torres Discharge: Date of : 31 Report #: [id number] THIS REPORT FOR: //name// [facility] Test Date: 2017-11-19 Test Time: 09:56:27 Pat Name: FER HOUSER Department: Room: [facility] Gender: M Pattern Changer And Repairer: ESME : 1930 Requested By: Navi Patricio Order Number: [id number] Nivia MD: Godfrey Rivas Measurements Intervals [place] Rate: 150 P: 0 VA: QRS: 263 QRSD: 154 T: 90 QT: 338 QTc: 534 Interpretive Statements Atrial tachycardia with 21 conduction Right bundle-branch block Left anterior fascicular block Compared to ECG 11/16/2017 08:26:43 Ventricular rate has increased Electronically Signed On 11-20-2017 17:48:10 CDT by Godfrey Rivas [email or web address] <ELECTRONICALLY SIGNED> By: Godfrey Rivas MD, [facility] 11/20/17 1748 0956 [id number] Godfrey Rivas MD, [facility] /EPI
--- NOTE | 2017-11-20 17:48 | NUR ---
PT RESTING IN BED,AGONAL BREATHING AT TIMES,STACH ON MONITOR. PT NONRESPONSIVE. NPO AT THIS TIME. INCONTINENT OF URINE. HOSPICE VISIT TODAY. FAMILY EDUCATED ON DYING PROCESS. PT DUSKY AND COLD. O2 SATS IN 70-80S. PT ON COMFORT CARE
--- NOTE | 2017-11-20 19:05 | NUR ---
PT GASPING. GIVEN MORPHINE PER FAMILY REQUEST.
--- NOTE | 2017-11-20 19:08 | NUR ---
HR decreased from 130s to 30s. Cessation of breathing. No palpable or ausculated by 2 RNs. Verified by Mayela Ruiz RN. Dr Burroughs notified. family at BS
--- NOTE | 2017-11-20 20:35 | NUR ---
RESUMMED CARE FOR THIS PATIENT. NURSE BEFORE ME RECEIVED PERMISSION TO RELEASE BODY TO HOME. POST MORDUM CARE COMPLETE. PLACE IN BODY BAG, ID ON ARM. AWAITING FOR HOME.
--- NOTE | 2017-11-20 21:04 | NUR ---
IV AND AUTHORIZATION SPECIALIST REMOVED, PLACED IN BODY BAG. BODY RELEASED TO HOME REPRESENTIVE.
== END 2017-11-20 19:08 | DRG 871 ==
LOC: M.ERS 13:56 → M.TBA-ER 15:42 → M.2W 15:42 → M.3W 11-19 08:04 → M.2W 11-19 10:20
PROVIDERS: Family Medicine; Internal Medicine; Internal Medicine Nephrology; Personal Emergency Response Attendant; ADMIT Internal Medicine
DX: A41.9 Sepsis, unspecified organism (principal); J96.21 Acute and chronic respiratory failure with hypoxia; I50.43 Acute on chronic combined systolic (congestive) and diastolic (congestive) heart failure; J18.9 Pneumonia, unspecified organism; I13.0 Hypertensive heart and chronic kidney disease with heart failure and stage 1 through stage 4 chronic kidney disease, or unspecified chronic kidney disease; L03.116 Cellulitis of left lower limb; J44.1 Chronic obstructive pulmonary disease with (acute) exacerbation; L03.115 Cellulitis of right lower limb; N17.9 Acute kidney failure, unspecified; J44.0 Chronic obstructive pulmonary disease with (acute) lower respiratory infection; I42.9 Cardiomyopathy, unspecified; Y99.8 Other external cause status; M19.90 Unspecified osteoarthritis, unspecified site; I89.0 Lymphedema, not elsewhere classified; E11.51 Type 2 diabetes mellitus with diabetic peripheral angiopathy without gangrene; E11.22 Type 2 diabetes mellitus with diabetic chronic kidney disease; N18.3 Chronic kidney disease, stage 3 (moderate); T50.905A Adverse effect of unspecified drugs, medicaments and biological substances, initial encounter; I08.0 Rheumatic disorders of both mitral and aortic valves; Z66 Do not resuscitate; I48.91 Unspecified atrial fibrillation; I46.9 Cardiac arrest, cause unspecified; F17.210 Nicotine dependence, cigarettes, uncomplicated; W19.XXXA Unspecified fall, initial encounter; E78.5 Hyperlipidemia, unspecified; M81.0 Age-related osteoporosis without current pathological fracture; Z86.73 Personal history of transient ischemic attack (TIA), and cerebral infarction without residual deficits; Z85.828 Personal history of other malignant neoplasm of skin; Z90.49 Acquired absence of other specified parts of digestive tract; Z90.89 Acquired absence of other organs; Z98.49 Cataract extraction status, unspecified eye; Z79.899 Other long term (current) drug therapy; Z98.42 Cataract extraction status, left eye; Z98.41 Cataract extraction status, right eye; Z85.46 Personal history of malignant neoplasm of prostate; Z82.3 Family history of stroke; Y92.89 Other specified places as the place of occurrence of the external cause; Y93.89 Activity, other specified